=== PATIENT | male | born 1980 | race Caucasian/White ===

== ENCOUNTER 2019-10-26 15:57 | Emergency (ER) | payer OTHER, SELFPAY ==
[2019-10-26 16:13] VITALS: BP 132/103; PULSE 100; RESP 18; TEMP 36.7; O2SAT 97
--- NOTE | 2019-10-26 17:31 | PC.NURSE ---
LET APPLIED BY LAMAR BRISENO AT THIS TIME.
--- NOTE | 2019-10-26 18:10 | ED.WOUNDLAC ---
HPI - Wound/Laceration General Chief Complaint: Wound/Laceration <Aaron Lewis PA-C - Last Filed: 10/26/19 18:14> Stated Complaint: wrist laceration <Aaron Lewis PA-C - Last Filed: 10/26/19 18:14> Time Seen by Provider: 10/26/19 17:23 <Aaron Lewis PA-C - Last Filed: 10/26/19 18:14> Source: patient <Aaron Lewis PA-C - Last Filed: 10/26/19 18:14> Mode of arrival: ambulatory <Aaron Lewis PA-C - Last Filed: 10/26/19 18:14> Limitations: no limitations <Aaron Lewis PA-C - Last Filed: 10/26/19 18:14> History of Present Illness HPI narrative: Patient is a 39-year-old male who presents to emergency department for evaluation of laceration of the left wrist was using a utility knife to cut zip ties when he sliced his arm patient notes aching pain patient has his tetanus is up-to-date patient has not taken anything for pain patient on arrival is resting comfortably in the room <Aaron Lewis PA-C - Last Filed: 10/26/19 18:14> Related Data Home Medications: Home Medications Medication Instructions Recorded Confirmed hydroxyzine HCl 10 mg PO QID PRN 10/26/19 mirtazapine 7.5 mg PO DAILY 10/26/19 <Aaron Lewis PA-C - Last Filed: 10/26/19 18:14> Allergies/Adverse Reactions: Allergies Allergy/AdvReac Type Severity Reaction Status Date / Time No Known Allergies Allergy Verified 10/26/19 16:16 <Aaron Lewis PA-C - Last Filed: 10/26/19 18:14> Review of Systems Review of Systems: All systems reviewed & are unremarkable except as noted in HPI and below <Aaron Lewis PA-C - Last Filed: 10/26/19 18:14> PMFSH Past Medical History Medical History: Medical History (Updated 10/26/19 @ 18:14 by Aaron Lewis PA-C) PTSD (post-traumatic stress disorder) <ALMA Black Last Filed: 10/26/19 18:14> Social History Social History: Social History (Updated 10/26/19 @ 18:11 by Aaron Lewis PA-C) Smoking status: Never smoker <Aaron Lewis PA-C - Last Filed: 10/26/19 18:14> Exam Narrative: Exam Narrative: GENERAL: Well-appearing, well-nourished, and in no acute distress. HEAD: Normocephalic, atraumatic. EYES: PERRLA and EOMI. EXTREMITIES: Normal range of motion. No edema. SKIN: Warm, dry, no rash. Patient with 1-1/2 cm linear superficial laceration of the volar surface of the left wrist NEURO: No focal deficits. Alert and oriented x3. Neurovascularly intact. Capillary refill less than 2 seconds PSYCH: Normal mood and affect. <Aaron Lewis PA-C - Last Filed: 10/26/19 18:14> Course Course Emergency Course: Patient in the room in no distress aware of case findings treatment plan diagnosis <Aaron Lewis PA-C - Last Filed: 10/26/19 18:14> Vital Signs Vital signs: Vital Signs Temperature 98.0 F 10/26/19 16:13 Pulse Rate 100 10/26/19 16:13 Respiratory Rate 18 10/26/19 16:13 Blood Pressure 132/103 H 10/26/19 16:13 Pulse Oximetry 97 10/26/19 16:13 Temperature 98.0 F 10/26/19 16:13 Pulse Rate 68 10/26/19 18:17 Respiratory Rate 16 10/26/19 18:17 Blood Pressure 118/75 10/26/19 18:17 Pulse Oximetry 100 10/26/19 18:17 <Aaron Lewis PA-C - Last Filed: 10/26/19 18:14> Vital Signs Temperature 98.0 F 10/26/19 16:13 Pulse Rate 100 10/26/19 16:13 Respiratory Rate 18 10/26/19 16:13 Blood Pressure 132/103 H 10/26/19 16:13 Pulse Oximetry 97 10/26/19 16:13 Temperature 98.0 F 10/26/19 16:13 Pulse Rate 68 10/26/19 18:17 Respiratory Rate 16 10/26/19 18:17 Blood Pressure 118/75 10/26/19 18:17 Pulse Oximetry 100 10/26/19 18:17 <Denise Pereira MD - Last Filed: 10/26/19 19:14> Procedures Laceration Laceration 1: Date: 10/26/19 <Aaron Lewis PA-C - Last Filed: 10/26/19 18:14> Time: 18:12 <Aaron Lewis PA-C - Last Filed: 10/26/19 18:14> Site:
[2019-10-26 18:17] VITALS: BP 118/75; PULSE 68; RESP 16; O2SAT 100
== END 2019-10-26 18:17 | disposition home or self-care (01) ==
PROVIDERS: Emergency Provider General Practice
DX: S61.512A Laceration without foreign body of left wrist, initial encounter (principal); W26.0XXA Contact with knife, initial encounter
CPT/HCPCS: 12001; 99282

== ENCOUNTER 2020-07-18 21:37 | Observation (INO) | payer OTHER, SELFPAY ==
--- NOTE | ~2020-07-18 | XR_ITS ---
EXAMINATION: XR chest 1V portable INDICATION: Weakness and dizziness, weight loss TECHNIQUE: Portable AP chest at 2013 COMPARISON: None available FINDINGS: The lungs are free of acute opacities. There is no pleural effusion or pneumothorax. The ca rdiomediastinal silhouette is normal. IMPRESSION: 1. No acute cardiopulmonary abnormality. Reviewed, dictated and finalized at location A.
--- NOTE | ~2020-07-18 | CT_ITS ---
EXAMINATION: CT brain wo con INDICATION: Dizziness COMPARISON: None TECHNIQUE: Standard unenhanced head CT. The dose-length product (DLP) was 681.00 mGy-cm. The mA was a djusted according to patient size. Iterative reconstruction technique was employed. FINDINGS: There is no intracranial hemorrhage, acute infarction, or abnormal mass lesion. The ventric les are normal. There is no abnormal mass effect or midline shift. The brooks-white matter differentiat ion is normal. The basal cisterns are patent. The orbits are normal. The paranasal sinuses, mastoids and calvarium are normal. IMPRESSION: 1. No acute intracranial abnormality. Reviewed, dictated and finalized at location A.
[2020-07-18 21:41] VITALS: BP 116/94; PULSE 117; RESP 20; TEMP 36.7; O2SAT 99
[2020-07-18 21:55] VITALS: PULSE 107
[2020-07-18 22:02] LABS: Basophils Percent Auto 0.5 % (0.2-1.2); Eosinophils Percent Auto 0.5 % (0-4.4); Hematocrit 42.8 % (42.0-52.0); Hemoglobin 15.7 g/dL (14.0-18.0); Immature Granulocyte Absolute 0.02 K/mm3 (0.00-0.031); Immature Granulocyte Percent A 0.3 % (0-0.5); Lymphocytes Absolute Auto 2.16 K/mm3 (0.9-3.2); Lymphocytes Percent Auto 27.1 % (18.3-44.2); Mean Corpuscular HGB Conc 36.7 g/dl (32-36); Mean Corpuscular Hemoglobin 29.6 pg (26-34); Mean Corpuscular Volume 80.8 fl (80-100); Monocytes Absolute Auto 0.5 K/mm3 (0.1-0.6); Monocytes Percent Auto 5.8 % (2.6-8.5); Neutrophils Absolute Auto 5.3 K/mm3 (1.3-6.7); Neutrophils Percent Auto 65.8 % (45.5-73.1); Platelet Count Result 298 k/mm3 (150-375); Red Cell Distribution Width 11.7 % (11.5-14.5)
[2020-07-18 22:05] VITALS: BP 135/92; PULSE 104; RESP 14; O2SAT 98
[2020-07-18 22:05] LABS: Add Urine Microscopic? YES; Appearance Urine Clear (Clear); Bilirubin Urine Negative (Negative); Blood Urine Negative (Negative); Color Urine Straw (Yellow); Glucose Urine UA 3+ mg/dL (Negative); Ketones Urine 1+ mg/dL (Negative); Leukocyte Esterase Ur Negative LEU/UL (Negative); Nitrate Urine Negative (Negative); Protein Urine Negative (Negative); RBC Urine 0-2 /hpf (0-2); Specific Grav Ur 1.027 (1.001-1.035); Urobilinogen Urine Negative mg/dL (<2.0); WBC Urine 0-3 /hpf
--- NOTE | 2020-07-18 22:08 | PC.NURSE ---
CXR completed at bedside. Pt presents to ED with complaints of generalized weakness and intermittent sob. Per pt mom, pt has lost weight and is thinner than usual. Pt states he eats as he normally would and denies chest pain, nvd, fever, and chills. Pt states he has also been experiencing falls with dizziness. Pt states I am on a lot of medicine . Pt is unable to determine what is causing his issues. Pt is alert and oriented x4 and resting on cart with mom at bedside. Call button and personal items within reach. Pt advised to press call button for assistance.
[2020-07-18 22:14] LABS: Alanine Aminotransferase 24 U/L (4-50); Albumin Level 4.1 g/dL (3.5-5.1); Alkaline Phosphatase 118 U/L (38-126); Anion Gap 14 mmol/L (8-16); Aspartate Amino Transferase 24 U/L (17-59); Bilirubin,Total 1.4 mg/dL (0.2-1.3); Blood Urea Nitrogen 17 mg/dL (9-20); Calcium 9.2 mg/dL (8.4-10.2); Carbon Dioxide 30 mmol/L (22-30); Chloride 79 mmol/L (98-107); Estimated CRCL calculation 93 ml/min; Estimated Glomerular Filt Rate > 60; Potassium 3.9 mmol/L (3.4-5.0); Sodium 123 mmol/L (137-145)
--- NOTE | 2020-07-18 22:25 | ED.GENADULT ---
HPI - General Adult General Chief complaint: Weakness Stated complaint: balance is off, legs don't work Time Seen by Provider: 07/18/20 22:07 Source: patient Mode of arrival: ambulatory Limitations: no limitations History of Present Illness HPI narrative: Patient is a 40-year-old male complaining of off balance x1 week. Mother also states that she has noticed weight loss for the past week. Patient denies any headache, speech or visual disturbance, focal weakness or numbness, neck pain or stiffness, chest pain, shortness of breath, abdominal pain, nausea, vomiting, fever or chills. Related Data Home Medications Medication Instructions Recorded Confirmed hydroxyzine HCl 10 mg PO QID PRN 10/26/19 mirtazapine 7.5 mg PO DAILY 10/26/19 Allergies Allergy/AdvReac Type Severity Reaction Status Date / Time No Known Allergies Allergy Verified 10/26/19 16:16 Review of Systems Review of Systems: All systems reviewed & are unremarkable except as noted in HPI and below Constitutional: Constitutional: Denies body ache(s), Denies chills, Denies excessive sweating, Denies fatigue, Denies fever(s), Denies headache(s), Denies lethargy, Denies malaise, Denies weakness and Denies weight loss Eyes: Eyes: Denies blurry vision, Denies change in vision and Denies loss of vision ENT: Denies dizziness, Denies ear discharge, Denies headache(s), Denies lip swelling, Denies epistaxis, Denies nasal congestion, Denies neck pain, Denies throat swelling and Denies tongue swelling Cardiovascular: Cardiovascular: Denies chest pain, Denies chest pain at rest, Denies chest pain with activity, Denies diaphoresis, Denies rapid heart rate, Denies edema, Denies irregular heart rhythm, Denies lightheadedness, Denies palpitations, Denies dyspnea and Denies dyspnea on exertion Respiratory: Respiratory: Denies chest congestion, Denies cough, Denies hemoptysis, Denies dyspnea and Denies dyspnea on exertion Gastrointestinal: Gastrointestinal: Denies abdominal pain, Denies melena, Denies hematochezia, Denies diarrhea, Denies nausea, Denies vomiting and Denies hematemesis Musculoskeletal: Musculoskeletal: Denies abnormal gait, Denies deformity, Denies joint swelling, Denies limited range of motion, Denies neck pain and Denies numbness Neurologic: Denies Abnormal speech present, Denies abnormal gait, Denies confusion, Denies dizziness, Denies headache(s), Denies focal weakness, Denies loss of vision, Denies numbness, Denies Other visual disturbances, Denies Sensory deficit (Neuro) and Denies weakness Psychiatric: Psychiatric: Denies confusion, Denies depression, Denies auditory hallucinations, Denies homicidal ideation and Denies suicidal ideation Endocrine: Endocrine: Denies cold intolerance, Denies excessive sweating, Denies fatigue, Denies heat intolerance and Denies palpitations Hematologic/Lymphatic: Hematologic/Lymphatic: Denies easy bleeding and Denies easy bruising Allergic/Immunologic: Allergic/Immunologic: Denies lip swelling, Denies throat swelling and Denies tongue swelling [facility] Past Medical History Medical History (Updated 07/18/20 @ 23:19 by Xavier Fernando MD) PTSD (post-traumatic stress disorder) Social History Social History (Updated 10/26/19 @ 18:11 by Aaron Lewis PA-C) Smoking status: Never smoker Comments Past medical history: PTSD Social history: Non-smoker, no EtOH or drug use Family history: Diabetes Exam Const: General: cooperative, healthy appearing, comfortable, no acute distress, well developed, alert and awake; No confusion Orientation/consciousness: oriented to person, oriented to place, oriented to time, patient oriented x3 and No confusion Limitations: no limitations HENMT: Head: normal to inspection, normocephalic and atraumatic Ears: hearing grossly normal bilaterally, TM normal on the right and TM normal on the left General nose exam: Normal external nose present, Normal nares present and No nasal discha
[2020-07-18 22:26] LABS: Glucose 811 mg/dL (75-110)
[2020-07-18] MEDS: SODIUM CHLORIDE 0.9% IV 1,000 ML 999 ML IV CONT ×2 (22:26→23:02)
[2020-07-18 23:02] LABS: Alveolar/Arterial O2 Gradient 32.1 mmHg; Base Excess ABG -0.7 mEq/l (+/-2.0); Carboxyhemoglobin 0.2 % THb (0-2.0); Fractional Inspired Oxygen 21 %; HCO3 ABG 23.7 mEq/l (22.0-26.0); Methemoglobin ABG 0.3 %THb (0-1.5); Oxygen Content ABG 18.6 %vol (16.0-22.0); Oxygen Saturation ABG 94.6 % (95.0-100.0); PCO2 ABG 38.5 mmHg (35.0-45.0); PO2 ABG 71.5 mmHg (80.0-100.0); Reduced Hemoglobin 6.5 %THb (0-5.0); Total Hemoglobin 14.2 g/dL (12.0-18.0); pH ABG 7.407 (7.350-7.450)
[2020-07-18 23:04] LABS: Modified Allen's Test Pass; Site Drawn LEFT RADIAL
[2020-07-18 23:05] LABS: Device ROOM AIR
[2020-07-18 23:09] LABS: Amphetamine Screen Urine Negative (Negative); Barbiturate Screen Urine Negative (Negative); Benzodiazepines Screen Urine Negative (Negative); Cannabinoid Screen Urine Negative (Negative); Cocaine Screen Urine Negative (Negative); Methadone Screen Urine Negative (Negative); Opiate Screen Urine Negative (Negative); Phencyclidine Screen Urine Negative (Negative)
--- NOTE | 2020-07-18 23:32 | PC.NURSE ---
EDMD presented to bedside to update pt and mom on poc. All questions and concerns addressed. No complaints or concerns voiced at this time. Vitals are stable and pt a/o x4 and in no obvious distress at this time. Call button and personal items within reach. Pt advised to press call button for assistance.
[2020-07-18 23:37] LABS: Beta-Hydroxybutyrate/Acetoacetate 2.31 mmol/L (0.02-0.27)
--- NOTE | 2020-07-18 23:38 | PC.NURSE ---
Pt ambulated to restroom with steady gait noted and pt is now back in room resting on cart. No complaints or concerns voiced. Advised to press call button for assistance.
--- NOTE | 2020-07-18 23:48 | PC.NURSE ---
glucose 525.
[2020-07-18] MEDS: INSULIN HUMAN REGULAR (*BKC) 100 UNITS/ML 10 UNITS IV PUSH (23:50)
[2020-07-18] MEDS: LACTATED RINGERS 1,000 ML 999 ML IV CONT (23:55)
[2020-07-18 23:59] LABS: Glucose Point of Care > 500 mg/dl (65-105)
[2020-07-19] VITALS (15 sets, daily range): BP systolic 99–125; BP diastolic 68–91; PULSE 75–94; RESP 14–18; TEMP 36–36.9; O2SAT 94–100; BMI 18.1; BMI 18.4
[2020-07-19 00:25] LABS: Glucose Point of Care > 500 mg/dl (65-105)
--- NOTE | 2020-07-19 00:25 | PC.NURSE ---
glucose 520.
--- NOTE | 2020-07-19 00:26 | PC.NURSE ---
glucose 525
--- NOTE | 2020-07-19 00:30 | PC.NURSE ---
Awaiting insulin drip from pharmacy.
--- NOTE | 2020-07-19 00:37 | PC.NURSE ---
Addendum entered by Lita Lafleur RN 07/19/20 00:38: Pharmacy called in regards to insulin drip; states he will send meds shortly. Original Note: pharmacy called in regards to insulin drip; states he will send meds shortl
--- NOTE | 2020-07-19 00:53 | PC.NURSE ---
continue to await med from pharmacy.
--- NOTE | 2020-07-19 00:55 | PC.NURSE ---
Received insulin drip from pharmacy.
[2020-07-19] MEDS: INSULIN HUMAN REGULAR (*BKC) 100 UNITS in SODIUM CHLORIDE 0.9% IV 99 ML 15 UNITS IV CONT (00:58)
--- NOTE | 2020-07-19 01:06 | PC.NURSE ---
Report called to Tammy. Almaraz to send pt to floor.
--- NOTE | 2020-07-19 01:10 | PC.NURSE ---
glucose 454.
[2020-07-19 01:13] LABS: Glucose Point of Care 454 mg/dl (65-105)
--- NOTE | 2020-07-19 01:36 | PC.NURSE ---
This patient, Feliciano Kamara, was admitted to Intensive Care Unit-11. Patient/family oriented to hospital policies and general routines including ID bracelet, bed and alarms, visiting hours, pain management, procedures, bathroom and other care routines, personal items, smoking policy, room service/diet, and visiting hours. Information on how to activate the Rapid Response Team has been discussed. Patient/Family are encouraged to report perceived risks to care and to ask questions if they do not understand what they are told or what they should do.
[2020-07-19] MEDS: SODIUM CHLORIDE 0.9% IV 1,000 ML 150 ML IV CONT (02:00)
[2020-07-19] MEDS: KCL 20 MEQ/D5/0.45% SOD CHL 1,000 ML 150 ML IV CONT (02:45)
--- NOTE | 2020-07-19 02:52 | PM.IMHP ---
H&P: HPI History of Present Illness Date/Time: 07/19/20 02:52 Chief Complaint: lightheadedness Narrative: The patient is a 40 yo male who presents to the ED with feeling lightheaded and off balance since past week. he rpeorts that he also had noticed weigh loss since past week. he rpeorts he was about 200 lbs, not sure when but as far as how he remembers he was. he is currenlty wegithing 141 lbs. he also notes that he has been drinking 2-3 jar of 64 oz water, and switching from soda to that more recently. he denies any recent illness, no fever, chlls, no sob, chest pain. he has hx of PTSD and has been on paroxetine, mirtazapine and hydroyxzine for some time. he deneis any speehc or visual distrubance, no headache, no focal weakness or numbness. no abdominal pain ,nausea, vomitng. In the ED evaluation, he was noted to have blood sugar of 881. he had elevated beta hydroxybutyrate, however his abg with acidosis and also normal labs and normal AG. he did have hyponatremia with blood sugar in 127. he was diagnsoed hyperosmolar hyperglycemic state. as discussed, he was started on iv insulin gtt and transferred to ICU for continued managmeent. 45 he has been started on iv insuiln at 15 units pe hoour and has been titrated per protocol. his last blood sugar is at 245. Review of Systems Review of Systems: Narrative: - CONSTITUTIONAL: Denies fever and chills. reports weight loss - HEENT: Denies changes in vision and hearing - RESPIRATORY: Denies SOB and cough. - CV: Denies palpitations and CP. - GI: Denies abdominal pain, nausea, vomiting and diarrhea. - : Denies dysuria and urinary frequency. - MSK: Denies myalgia and joint pain. - SKIN: Denies rash and pruritus. - NEUROLOGICAL: Denies headache and syncope. reports lightheadedness, and feeling woobly - PSYCHIATRIC: Denies recent changes in mood. Denies anxiety and depression. All systems reviewed & are unremarkable except as noted in HPI and below Constitutional: Constitutional: Reports fatigue and Reports weakness Neurologic: Reports weakness Endocrine: Endocrine: Reports fatigue [facility] Past Medical History Medical History (Updated 07/18/20 @ 23:19 by Xavier Fernando MD) PTSD (post-traumatic stress disorder) Family History Family History (Updated 07/19/20 @ 01:35 by Lisa Mac RN) Mother Diabetes mellitus Grandparent Cerebrovascular accident Social History Social History (Updated 10/26/19 @ 18:11 by Aaron Lewis PA-C) Smoking packs per day: 1 Smoking cigarettes per day: 20.0 Years smoked: 20 Smoking pack-years: 20.00 Smoking status: Former smoker Tobacco type: e-cigarettes/vaping Alcohol intake: former Substance use: former Spiritual care concerns: No Meds Home Medications and Allergies Home Medications Medication Instructions Recorded Confirmed Type hydroxyzine HCl 10 mg PO QID PRN 10/26/19 07/19/20 History mirtazapine 7.5 mg PO DAILY 10/26/19 07/19/20 History paroxetine HCl 30 mg PO HS 07/19/20 07/19/20 History Allergies Allergy/AdvReac Type Severity Reaction Status Date / Time No Known Allergies Allergy Verified 10/26/19 16:16 Vital Signs Vital Signs - 24 hr 07/18/20 21:41 07/18/20 21:55 07/18/20 22:05 Temperature 98.1 F Pulse Rate 117 H 107 H 104 H Respiratory Rate 20 14 Blood Pressure 116/94 H 135/92 H Pulse Oximetry 99 98 07/19/20 00:34 07/19/20 01:29 07/19/20 01:30 Temperature Pulse Rate 86 94 94 Respiratory Rate 18 18 18 Blood Pressure 118/88 118/88 118/88 Pulse Oximetry 99 100 100 07/19/20 01:31 07/19/20 01:40 07/19/20 02:00 Temperature 98.1 F Pulse Rate 89 89 Respiratory Rate 14 14 Blood Pressure 125/89 112/91 H Pulse Oximetry 97 97 94 Exam Narrative: Exam Narrative: GENERAL: The patient is well developed, not in acute distress HEENT: Nonicteric sclerae, PERRLA, EOMI. Oropharynx clear. Moist mucous membranes. Conjunctivae appear well perfused
[2020-07-19 03:31] LABS: Anion Gap 5 mmol/L (8-16); Blood Urea Nitrogen 15 mg/dL (9-20); Carbon Dioxide 36 mmol/L (22-30); Chloride 95 mmol/L (98-107); Estimated CRCL calculation 88 ml/min; Estimated Glomerular Filt Rate > 60; Glucose 195 mg/dL (75-110); Magnesium 1.1 mg/dL (1.6-2.3); Phosphorus 1.7 mg/dL (2.5-4.5); Potassium 2.8 mmol/L (3.4-5.0); Sodium 136 mmol/L (137-145)
[2020-07-19] MEDS: MAGNESIUM SULF 2 GM/WATER 50ML 2 GM/50 ML BAG IVPB (04:36)
[2020-07-19] MEDS: POTASSIUM CHLORIDE 20 MEQ TABLET 40 MEQ PO ×2 (04:36→08:28)
[2020-07-19] MEDS: INSULIN GLARGINE (*BKC) 100 UNITS/ML 13 UNITS SUB-Q (04:47)
[2020-07-19 04:55] LABS: Glucose Point of Care 243 mg/dl (65-105)
[2020-07-19 04:55] LABS: Glucose Point of Care 417 mg/dl (65-105)
[2020-07-19 04:56] LABS: Glucose Point of Care 152 mg/dl (65-105)
[2020-07-19 04:56] LABS: Glucose Point of Care 113 mg/dl (65-105)
[2020-07-19 05:31] LABS: Glucose Point of Care 142 mg/dl (65-105)
[2020-07-19 06:29] LABS: Glucose Point of Care 159 mg/dl (65-105)
[2020-07-19 07:10] LABS: Anion Gap 4 mmol/L (8-16); Blood Urea Nitrogen 13 mg/dL (9-20); Calcium 8.3 mg/dL (8.4-10.2); Carbon Dioxide 36 mmol/L (22-30); Chloride 94 mmol/L (98-107); Estimated CRCL calculation 100 ml/min; Estimated Glomerular Filt Rate > 60; Glucose 145 mg/dL (75-110); Sodium 134 mmol/L (137-145)
[2020-07-19 07:16] LABS: Beta-Hydroxybutyrate/Acetoacetate 1.05 mmol/L (0.02-0.27)
[2020-07-19 07:41] LABS: Cortisol Random 3.88 ug/dL
[2020-07-19 08:14] LABS: Glucose Point of Care 180 mg/dl (65-105)
[2020-07-19] MEDS: SODIUM CHLORIDE 0.9% IV 1,000 ML 75 ML IV CONT (08:28)
[2020-07-19] MEDS: POTASSIUM PHOS,M-BASIC-D-BASIC 20 MMOL in SODIUM CHLORIDE 0.9% IV 250 ML 64.17 MMOL IVPB (09:10)
[2020-07-19] MEDS: INSULIN ASPART (*BKC) 100 UNITS/ML SUB-Q ×5 (09:11→18:03)
--- NOTE | 2020-07-19 10:59 | WPDCNINT ---
Assessment and Plan Assessment and plan (1) DKA (diabetic ketoacidoses): Code(s): E11.10 - Type 2 diabetes mellitus with ketoacidosis without coma Status: Acute Assessment and Plan: Patient presented with high blood sugar in 800s. His anion gap was normal but he had a positive beta hydroxybutyrate He was given 2 L of fluid bolus and started on IV infusion of insulin and IV fluid Serial BMPs were done Patient was transitioned to subcutaneous insulin this morning before I saw the patient Lantus had been administered and patient was started on with meal plus sliding scale insulin Anion gap is 4 Patient is asymptomatic at this time Will continue with current treatment plan of subcutaneous insulin Continue IV fluids in the form of normal saline Advance diet Transfer patient out of ICU (2) Hypokalemia: Code(s): E87.6 - Hypokalemia Status: Acute Assessment and Plan: Replacement has been ordered (3) Hypophosphatemia: Code(s): E83.39 - Other disorders of phosphorus metabolism Status: Acute Assessment and Plan: K-Phos replacement has been ordered (4) PTSD (post-traumatic stress disorder): Code(s): F43.10 - Post-traumatic stress disorder, unspecified Status: Acute Assessment and Plan: Continue home medications [employer] Consult Note Consult date: 07/19/20 Time Seen: 08:00 HPI: Feliciano Kamara is a 40 year old male with past medical history of PTSD and family history of diabetes presented yesterday to ER with chief complaint of lightheadedness and dizziness. He also complained of loss of weight over last weeks and months. Also complained of drinking large amount of water in being thirsty all the time. Denied any complaints at that time. In ED workup showed patient's blood sugar was 800. He was also dehydrated. Patient was given IV fluid bolus and started on IV fluids and insulin infusion. This morning he feels better and denies any complaint at this time. he states his symptoms have resolved completely and he does not feel dizzy or lightheaded this time. Patient denies fever, chest pain, shortness of breath, cough, nausea vomiting, abdominal pain,, diarrhea, headache or constipation. He has received COVID vaccine. All other systems were reviewed and were negative Review of Systems Review of Systems: All systems reviewed & are unremarkable except as noted in HPI and below (HPI) [facility] Past Medical History Medical History (Updated 07/19/20 @ 11:02 by Jim Nino MD) PTSD (post-traumatic stress disorder) Family History Family History Mother Diabetes mellitus Grandparent Cerebrovascular accident Social History Social History Smoking packs per day: 1 Smoking cigarettes per day: 20.0 Years smoked: 20 Smoking pack-years: 20.00 Smoking status: Former smoker Tobacco type: e-cigarettes/vaping Alcohol intake: former Substance use: former Spiritual care concerns: No Meds Home Medications and Allergies Home Medications Medication Instructions Recorded Confirmed Type hydroxyzine HCl 10 mg PO QID PRN 10/26/19 07/19/20 History mirtazapine 7.5 mg PO DAILY 10/26/19 07/19/20 History paroxetine HCl 30 mg PO HS 07/19/20 07/19/20 History Allergies Allergy/AdvReac Type Severity Reaction Status Date / Time No Known Allergies Allergy Verified 10/26/19 16:16 Vital Signs Vital Signs - 24 hr 07/18/20 21:41 07/18/20 21:55 07/18/20 22:05 Temperature 36.7 C Pulse Rate 117 H 107 H 104 H Respiratory Rate 20 14 Blood Pressure 116/94 H 135/92 H Pulse Oximetry 99 98 07/19/20 00:34 07/19/20 01:29 07/19/20 01:30 Temperature Pulse Rate 86 94 94 Respiratory Rate 18 18 18 Blood Pressure 118/88 118/88 118/88 Pulse Oximetry 99 100 100 07/19/20 01:31 07/19/20 01:40 07/19/20 02:00 Temperature 36.7 C Pulse Rat
[2020-07-19 12:18] LABS: Glucose Point of Care 324 mg/dl (65-105)
--- NOTE | 2020-07-19 13:55 | PM.IMPN ---
Progress Note: A&P Assessment and Plan (1) PTSD (post-traumatic stress disorder): Code(s): F43.10 - Post-traumatic stress disorder, unspecified Status: Acute Assessment and Plan: Pt appears calm in the hospital, pt is on paroxetine. (2) Hyperosmolar hyperglycemic state (HHS): Code(s): E11.00 - Type 2 diabetes mellitus with hyperosmolarity without nonketotic hyperglycemic-hyperosmolar coma (NKHHC); E11.65 - Type 2 diabetes mellitus with hyperglycemia Status: Acute Assessment and Plan: Hydrate with fluids, Insulin drip, regular BMPs, watch gap (3) Diabetes mellitus, new onset: Code(s): E11.9 - Type 2 diabetes mellitus without complications Status: Acute Assessment and Plan: New onset consult DM education and moisture tester. Pt will likely be discharged on insulin HBaic is too high to qualify. Watch sodium levels and potassium levels Subjective Date/time seen: 07/19/20 13:55 Interval history: 40 yo male who presents to the ED with feeling lightheaded and off balance since past week. he reports that he also had noticed weigh loss since past week. he reports he was about 200 lbs. Found to be new DM. Pt is on insulin drip in ICU. Review of Systems Review of Systems: All systems reviewed & are unremarkable except as noted in HPI and below Exam Narrative: Exam Narrative: GENERAL: The patient is well developed HEENT: Nonicteric sclerae, PERRLA CHEST: Chest wall is nontender. HEART: Regular rate and rhythm without murmur, rubs, or gallops LUNGS: Clear to auscultation bilaterally. no respiratory distress ABDOMEN: Soft, positive bowel sounds, non-tender, no organomegaly. SKIN: No rash, no excessive bruising, petechiae, or purpura. NEUROLOGIC: Cranial nerves II-XII intact, alert and oriented x 3, no gross motor deficits EXTREMITIES: no edema, cyanosis or clubbing Objective Data Vital Signs Vital Signs: Vital Signs - 24 hr 07/18/20 21:41 07/18/20 21:55 07/18/20 22:05 Temperature 36.7 C Pulse Rate 117 H 107 H 104 H Respiratory Rate 20 14 Blood Pressure 116/94 H 135/92 H Pulse Oximetry 99 98 07/19/20 00:34 07/19/20 01:29 07/19/20 01:30 Temperature Pulse Rate 86 94 94 Respiratory Rate 18 18 18 Blood Pressure 118/88 118/88 118/88 Pulse Oximetry 99 100 100 07/19/20 01:31 07/19/20 01:40 07/19/20 02:00 Temperature 36.7 C Pulse Rate 89 89 Respiratory Rate 14 14 Blood Pressure 125/89 112/91 H Pulse Oximetry 97 97 94 07/19/20 04:00 07/19/20 06:00 07/19/20 08:00 Temperature 36.9 C 36.5 C Pulse Rate 78 75 83 Respiratory Rate 17 14 18 Blood Pressure 110/81 110/78 110/86 Pulse Oximetry 94 94 98 07/19/20 10:00 07/19/20 11:39 Temperature Pulse Rate 84 Respiratory Rate 18 Blood Pressure 99/74 L Pulse Oximetry 95 97 Intake/Output Intake/Output: Intake & Output 07/16/20 07/17/20 07/18/20 07/19/20 23:59 23:59 23:59 23:59 Intake Total 1999 1984 Output Total 1499 Balance 1999 485 Meds/Results Medications: Active Medications Generic Name Dose Route Start Last Admin Trade Name Freq PRN Reason Stop Dose Admin Dextrose 12.5 gm 07/19/20 02:35 Dextrose 50% 25 Gm/50 Ml Syringe IV PUSH PRN PRN Hypoglycemia Protocol Glucagon 1 mg 07/19/20 02:35 Glucagon For Inj 1 Mg Vial IM PRN PRN Hypoglycemia Protocol Glucose 15 gm 07/19/20 02:35 Glucose Oral Gel 15 Gm Of Glucse In 37.5 Gm Tube PO PRN PRN Hypoglycemia Protocol Hydroxyzine HCl 10 mg 07/19/20 02:55 Hydroxyzine Hcl 10 Mg Tablet PO QID PRN Anxiety Dextrose 1,000 mls @ 100 mls/hr 07/19/20 02:35 Dextrose 5% 1,000 Ml IVPB PRN PRN Hypoglycemia Protocol Sodium Chloride 1,000 mls @ 75 mls/hr 07/19/20 08:15 07/19/20 08:28 Normal Saline Iv IV CONT 07/19/20 20:16 75 mls/hr .[id number] MAXIMO Administration Insulin Aspart 4 units 07/19/20 08:00 07/19/20 13:10 Insulin Asp
[2020-07-19 15:37] LABS: Anion Gap 3 mmol/L (8-16); Blood Urea Nitrogen 15 mg/dL (9-20); Calcium 8.2 mg/dL (8.4-10.2); Carbon Dioxide 34 mmol/L (22-30); Chloride 98 mmol/L (98-107); Estimated CRCL calculation 100 ml/min; Estimated Glomerular Filt Rate > 60; Glucose 270 mg/dL (75-110); Potassium 4.1 mmol/L (3.4-5.0); Sodium 135 mmol/L (137-145)
--- NOTE | 2020-07-19 16:42 | PC.NURSE ---
Patient transferred to room 251, report given to Violetta SORTO, all belongings sent with patient
[2020-07-19 16:48] LABS: Glucose Point of Care 247 mg/dl (65-105)
--- NOTE | 2020-07-19 17:51 | PC.NURSE ---
This patient, Feliciano Kamara, was received from ICU on 07/19/20 at 1630 report received from Alfonso SORTO. Patient/family oriented to unit policies and routines
[2020-07-19 19:22] LABS: Anion Gap 3 mmol/L (8-16); Blood Urea Nitrogen 13 mg/dL (9-20); Calcium 8.1 mg/dL (8.4-10.2); Carbon Dioxide 33 mmol/L (22-30); Chloride 99 mmol/L (98-107); Estimated CRCL calculation 113 ml/min; Estimated Glomerular Filt Rate > 60; Glucose 335 mg/dL (75-110); Potassium 4.3 mmol/L (3.4-5.0); Sodium 135 mmol/L (137-145)
[2020-07-19 20:26] LABS: Add Urine Microscopic? YES; Appearance Urine Clear (Clear); Bilirubin Urine Negative (Negative); Blood Urine 2+ (Negative); Color Urine Straw (Yellow); Glucose Urine UA 3+ mg/dL (Negative); Ketones Urine Trace mg/dL (Negative); Leukocyte Esterase Ur Negative LEU/UL (NEGATIVE); Nitrate Urine Negative (Negative); Protein Urine Negative (Negative); RBC Urine 0-2 /hpf (0-2); Specific Grav Ur 1.016 (1.001-1.035); Urobilinogen Urine Negative mg/dL (<2.0); WBC Urine 0-3 /hpf (0-3)
[2020-07-19] MEDS: PARoxetine 10 MG TABLET 30 MG PO (20:49)
[2020-07-19] MEDS: MIRTAZAPINE 7.5 MG TABLET PO (20:50)
[2020-07-19 21:37] LABS: Glucose Point of Care 338 mg/dl (65-105)
[2020-07-19 23:08] LABS: Anion Gap 3 mmol/L (8-16); Blood Urea Nitrogen 12 mg/dL (9-20); Calcium 8.5 mg/dL (8.4-10.2); Carbon Dioxide 31 mmol/L (22-30); Chloride 102 mmol/L (98-107); Estimated CRCL calculation 113 ml/min; Estimated Glomerular Filt Rate > 60; Glucose 297 mg/dL (75-110); Potassium 4.1 mmol/L (3.4-5.0); Sodium 136 mmol/L (137-145)
[2020-07-20] MEDS: INSULIN GLARGINE (*BKC) 100 UNITS/ML 13 UNITS SUB-Q (00:31)
[2020-07-20 00:44] LABS: Glucose Point of Care 291 mg/dl (65-105)
[2020-07-20 05:01] VITALS: BP 114/83; PULSE 72; RESP 18; TEMP 36.2; O2SAT 99
[2020-07-20 06:00] LABS: Anion Gap 4 mmol/L (8-16); Blood Urea Nitrogen 10 mg/dL (9-20); Calcium 8.4 mg/dL (8.4-10.2); Carbon Dioxide 31 mmol/L (22-30); Chloride 104 mmol/L (98-107); Estimated CRCL calculation 114 ml/min; Estimated Glomerular Filt Rate > 60; Glucose 204 mg/dL (75-110); Magnesium 1.1 mg/dL (1.6-2.3); Potassium 3.6 mmol/L (3.4-5.0); Sodium 139 mmol/L (137-145)
[2020-07-20 07:51] LABS: Glucose Point of Care 169 mg/dl (65-105)
[2020-07-20 08:05] VITALS: BP 118/87; PULSE 97; RESP 18; TEMP 36.6; O2SAT 99
[2020-07-20] MEDS: INSULIN ASPART (*BKC) 100 UNITS/ML SUB-Q ×3 (08:12→12:06)
[2020-07-20 11:50] LABS: Glucose Point of Care 227 mg/dl (65-105)
--- NOTE | 2020-07-20 12:08 | PM.IMPN ---
Progress Note: A&P Assessment and Plan (1) PTSD (post-traumatic stress disorder): Code(s): F43.10 - Post-traumatic stress disorder, unspecified Status: Acute Assessment and Plan: Pt appears calm in the hospital, pt is on paroxetine. (2) Hyperosmolar hyperglycemic state (HHS): Code(s): E11.00 - Type 2 diabetes mellitus with hyperosmolarity without nonketotic hyperglycemic-hyperosmolar coma (NKHHC); E11.65 - Type 2 diabetes mellitus with hyperglycemia Status: Resolved Assessment and Plan: Hydrate with fluids, and insulin. pt is doing well on lantus now. Hopeful DC tomorrow. (3) Diabetes mellitus, new onset: Code(s): E11.9 - Type 2 diabetes mellitus without complications Status: Acute Assessment and Plan: New onset consult DM education and line operator. Pt will likely be discharged on insulin HBaic is too high Watch sodium levels and potassium levels Subjective Date/time seen: 07/20/20 12:08 Interval history: 40 yo male who presents to the ED with feeling lightheaded and off balance since past week. he reports that he also had noticed weigh loss since past week. he reports he was about 200 lbs. Found to be new DM. Pt is on medical floor sugars are still high at 190s today. Review of Systems Review of Systems: All systems reviewed & are unremarkable except as noted in HPI and below Exam Narrative: Exam Narrative: GENERAL: The patient is well developed HEENT: Nonicteric sclerae, PERRLA CHEST: Chest wall is nontender. HEART: Regular rate and rhythm without murmur, rubs, or gallops LUNGS: Clear to auscultation bilaterally. no respiratory distress ABDOMEN: Soft, positive bowel sounds, non-tender, no organomegaly. SKIN: No rash, no excessive bruising, petechiae, or purpura. NEUROLOGIC: Cranial nerves II-XII intact, alert and oriented x 3, no gross motor deficits EXTREMITIES: no edema, cyanosis or clubbing Objective Data Vital Signs Vital Signs: Vital Signs - 24 hr 07/19/20 16:00 07/19/20 16:30 07/19/20 20:20 Temperature 36.6 C 36.0 C L 36.6 C Pulse Rate 76 81 77 Respiratory Rate 18 18 16 Blood Pressure 104/77 100/83 109/68 Pulse Oximetry 96 99 96 07/19/20 23:54 07/20/20 05:01 07/20/20 08:05 Temperature 36.3 C L 36.2 C L 36.6 C Pulse Rate 94 72 97 Respiratory Rate 18 18 18 Blood Pressure 103/73 114/83 118/87 Pulse Oximetry 97 99 99 Intake/Output Intake/Output: Intake & Output 07/17/20 07/18/20 07/19/20 07/20/20 23:59 23:59 23:59 23:59 Intake Total 1999 3796.67 630 Output Total 1500 1999 Balance 1999 3237.67 -1890 Meds/Results Medications: Active Medications Generic Name Dose Route Start Last Admin Trade Name Freq PRN Reason Stop Dose Admin Dextrose 12.5 gm 07/19/20 02:35 Dextrose 50% 25 Gm/50 Ml Syringe IV PUSH PRN PRN Hypoglycemia Protocol Glucagon 1 mg 07/19/20 02:35 Glucagon For Inj 1 Mg Vial IM PRN PRN Hypoglycemia Protocol Glucose 15 gm 07/19/20 02:35 Glucose Oral Gel 15 Gm Of Glucse In 37.5 Gm Tube PO PRN PRN Hypoglycemia Protocol Hydroxyzine HCl 10 mg 07/19/20 02:55 Hydroxyzine Hcl 10 Mg Tablet PO QID PRN Anxiety Dextrose 1,000 mls @ 100 mls/hr 07/19/20 02:35 Dextrose 5% 1,000 Ml IVPB PRN PRN Hypoglycemia Protocol Insulin Aspart 4 units 07/19/20 08:00 07/20/20 12:06 Insulin Aspart (*Bkc) 100 Units/Ml 0.067 units/kg (4 units) 4 units SUB-Q Administration TIDWM MAXIMO Insulin Aspart 2 - 5 units 07/19/20 08:00 07/20/20 12:06 Insulin Aspart (*Bkc) 100 Units/Ml SUB-Q 2 units TIDWM MAXIMO Administration Protocol Insulin Glargine 13 units 07/20/20 00:10 07/20/20 00:31 Insulin Glargine (*Bkc) 100 Units/Ml SUB-Q 13 units HS MAXIMO Administration Mirtazapine 7.5 mg 07/19/20 21:00 07/19/20 20:50 Mirtazapine 7.5 Mg Tablet PO 7.5 mg HS MAIXMO Administration Paroxetine HCl 30 mg 07/19/20
--- NOTE | 2020-07-20 15:26 | PC.NURSE ---
Pt came to desk to reports he is signing out AMA if Not released today, Photographic Colorist notified Dr. Teran who reports she will D/C pt so he gets his medications.
--- NOTE | 2020-07-20 16:03 | PM.DS ---
DS: Admitting Diagnosis Admitting Diagnosis Admitting Diagnosis: Lightheadedness DS: Discharge Diagnosis Discharge Diagnosis (1) PTSD (post-traumatic stress disorder): Code(s): F43.10 - Post-traumatic stress disorder, unspecified Status: Acute Assessment and Plan: Pt appears calm in the hospital, pt is on paroxetine. (2) Hyperosmolar hyperglycemic state (HHS): Code(s): E11.00 - Type 2 diabetes mellitus with hyperosmolarity without nonketotic hyperglycemic-hyperosmolar coma (NKHHC); E11.65 - Type 2 diabetes mellitus with hyperglycemia Status: Resolved Assessment and Plan: Hydrate with fluids, and insulin. pt is doing well on lantus now. DC today long discussion about monitoring sugars accuchecks, taking insulin follow up with PCP. (3) Diabetes mellitus, new onset: Code(s): E11.9 - Type 2 diabetes mellitus without complications Status: Acute Assessment and Plan: New onset consult DM education and agricultural consultant. Pt will likely be discharged on insulin HBaic is too high on admission. DS: Summary Hospital Course Hospital Course: 40 yo male who presents to the ED with feeling lightheaded and off balance since past week. he reports that he also had noticed weigh loss since past week. he reports he was about 200 lbs. Found to be new DM. Pt is on medical floor sugars are better, pt really wants to go home. Time Spent with Patient Time attestation: Total time spent providing and/or coordinating discharge services:40 minutes on day of discharge. Exam Narrative: Exam Narrative: GENERAL: The patient is well developed HEENT: Nonicteric sclerae, PERRLA CHEST: Chest wall is nontender. HEART: Regular rate and rhythm without murmur, rubs, or gallops LUNGS: Clear to auscultation bilaterally. no respiratory distress ABDOMEN: Soft, positive bowel sounds, non-tender, no organomegaly. SKIN: No rash, no excessive bruising, petechiae, or purpura. NEUROLOGIC: Cranial nerves II-XII intact, alert and oriented x 3, no gross motor deficits EXTREMITIES: no edema, cyanosis or clubbing DS: Data Data Completed and Pending Labs on day of discharge: Labs from last 24 hours 07/20/20 07/20/20 07/20/20 11:47 07:22 05:32 Sodium 139 Potassium 3.6 Chloride 104 Carbon Dioxide 31 H Anion Gap 4 L BUN 10 Creatinine 0.70 Estim Creat Clear Calc 114 Estimated GFR > 60 Glucose 204 H POC Capillary Glucose 227 H 169 H Calcium 8.4 Magnesium 1.1 L Urine Color Urine Appearance Urine pH Ur Specific [place] Urine Protein Urine Glucose (UA) Urine Ketones Ur Blood (Man) Urine Nitrate Urine Bilirubin Urine Urobilinogen Ur Leukocyte Esterase Urine RBC Urine WBC 07/19/20 07/19/20 07/19/20 23:58 22:35 20:47 Sodium 136 L Potassium 4.1 Chloride 102 Carbon Dioxide 31 H Anion Gap 3 L BUN 12 Creatinine 0.70 Estim Creat Clear Calc 113 Estimated GFR > 60 Glucose 297 H POC Capillary Glucose 291 H 338 H Calcium 8.5 Magnesium Urine Color Urine Appearance Urine pH Ur Specific [place] Urine Protein Urine Glucose (UA) Urine Ketones Ur Blood (Man) Urine Nitrate Urine Bilirubin Urine Urobilinogen Ur Leukocyte Esterase Urine RBC Urine WBC 07/19/20 07/19/20 07/19/20 20:16 19:06 16:46 Sodium 135 L Potassium 4.3 Chloride 99 Carbon Dioxide 33 H Anion Gap 3 L BUN 13 Creatinine 0.70 Estim Creat Clear Calc 113 Estimated GFR > 60 Glucose 335 H POC Capillary Glucose 247 H Calcium 8.1 L Magnesium Urine Color Straw Urine Appearance Clear Urine pH 7.0 Ur Specific [place] 1.016 Urine Protein Negative Urine Glucose (UA) 3+ H Urine Ketones Trace Ur Blood (Man) 2+ H Urine Nitrate Negative Urine Bilirubin Negative Urine Urobilinogen Negative Ur Leukocyte Esterase Negativ
[2020-07-20 16:30] VITALS: BMI 18.7
--- NOTE | 2020-07-20 16:30 | PC.NURSE ---
diabetic educator here to see pt before D/C
[2020-07-20 19:23] LABS: SARS-CoV-2 RNA PCR Negative
[2020-07-23 15:05] LABS: Glutamic acid decarboxylase AA <5 IU/mL (<5)
== END 2020-07-20 17:40 | disposition home or self-care (01) ==
LOC: ANHED 23:19 → ANHICU 07-19 02:33 → ANH2MED 07-20 10:55 → ANHICU 07-24 13:19
PROVIDERS: Admitting Provider Internal Medicine; Emergency Provider Emergency Medicine; Visit Provider Family Medicine
DX: E11.65 Type 2 diabetes mellitus with hyperglycemia (principal); R42 Dizziness and giddiness; F43.10 Post-traumatic stress disorder, unspecified; E87.6 Hypokalemia; Z79.4 Long term (current) use of insulin; Z87.891 Personal history of nicotine dependence; Z20.822 Contact with and (suspected) exposure to COVID-19
CPT/HCPCS: 36415; 36600; 70450; 71045; 80048; 80053; 80307; 81001; 82010; 82375; 82533; 82805; 82948; 83036; 83050; 83735; 84100; 85025; 86341; 96361; 96365; 96366; 96367; 96368; 96374; 97161; 99285; A9270; C9803; G0378; J1815; J3475; J3480; J7030; J7050; J7120; U0003; U0005